=== PATIENT | male | born 1990 | race African-American/Black ===

== ENCOUNTER 2019-11-09 08:13 | Day surgery (SDC) | payer OTHER ==
[~2019-11-09] VITALS: Ht 180.3 cm; Wt 81.6 kg
[2019-11-09 10:00] VITALS: BP 119/64
[2019-11-09 16:49] VITALS: BP 104/56
== END 2019-11-09 12:45 | disposition home or self-care (01) ==
LOC: DS 08:13 → OR 12:00 → GI 12:00 → DS 12:45
DX: R11.10 Vomiting, unspecified (principal); F20.9 Schizophrenia, unspecified; Z88.0 Allergy status to penicillin; Z79.899 Other long term (current) drug therapy
CPT/HCPCS: 43235; 87081; J1200; J1610; J2250; J2310; J3010; J3490